=== PATIENT | male | born 1985 | race Caucasian/White ===

== ENCOUNTER 2017-01-27 10:27 | Emergency (ER) | payer OTHER ==
[2017-01-27] MEDS ORDERED: NO HOME MEDICATION (10:34)
[2017-01-27] MEDS ORDERED: NORCO 5-325 TA1 EACH PO (11:40)
== END 2017-01-27 12:38 ==
LOC: EDMED 10:27
DX: S16.1XXA Strain of muscle, fascia and tendon at neck level, initial encounter (principal); R51 Headache; M54.5 Low back pain; V49.40XA Driver injured in collision with unspecified motor vehicles in traffic accident, initial encounter; Y92.410 Unspecified street and highway as the place of occurrence of the external cause; Z98.890 Other specified postprocedural states